=== PATIENT | female | born 1945 | race Caucasian/White ===

== ENCOUNTER → 2017-02-15 | Outpatient (CLI) | payer MEDICARE, OTHER ==
--- NOTE | ~2017-02-15 | MY11 ---
[facility] A Service of [facility] RADIOLOGY TEXT RESULTS PATIENT: VALERY MORAN LOCATION: [facility] : 43 UNIT #: [id number] AGE: [address]: Isaías Gleason MD SEX: F ORDER DR: [id number] [place] [id number] [facility]. [place], [place] [address] [id number] O MR#: [id number] Acc #: [id number] NAME: VALERY MORAN : 1945 SEX: F STUDY DATE/TIME: 02/15/2017 9:32 UNIT: [facility] ROOM: STUDY DESCRIPTION: MY Mammogram Screening Dig Tulio Attending Physician: Isaías Gleason M.D. Ordering Physician: Isaías Gleason M.D. Primary Care Physician: Isaías Gleason M.D. MEDICAL IMAGING REPORT This report is preliminary unless electronic signature is present EXAM Bilateral digital screening mammogram with CAD 02/15/2017 INDICATION 72-year-old female for routine screening. No reported problems. No personal history of breast cancer. Family history positive in a cousin. History of breast implant placement years ago and cyst removal years ago. Silicone implants. TECHNIQUE CC, MLO, and implant displaced views of the breasts were obtained and reviewed with an FDA-approved CAD device. COMPARISON We have no comparison studies. This will serve as her new baseline. FINDINGS There are bilateral retroglandular silicone implants present. They appear symmetric and intact. There is no dominant suspicious nodule or mass in either breast. No suspicious cluster of microcalcifications. On the CC view of the right breast there is a 7 mm nodular density laterally and posteriorly probably representing a tiny cyst or intramammary node. Suggest further evaluation with a spot compression view and a true lateral view. If this cannot be confirmed as benign mammographically, then targeted ultrasound may be necessary for further assessment. IMPRESSION 1. 7 mm nodular asymmetry in the posterolateral right breast. Additional views potentially and potentially a breast ultrasound recommended for further assessment. [facility] A Service of [facility] & [facility] RADIOLOGY TEXT RESULTS PATIENT: VALERY MORAN LOCATION: [facility] : 43 UNIT #: [id number] AGE: [address]: Isaías Gleason MD SEX: F ORDER DR: Patient's over the age of 40 are entered into a reminder system with target due date for the next mammogram. BIRADS: 0 Incomplete; Need additional imaging evaluation and/or prior mammograms for comparison. Dictated by... John Paul Keller M.D. THIS IS AN ELECTRONICALLY VERIFIED REPORT John Paul Keller M.D. at 02/15/2017 4:59 PM Carissa TD: 02/15/2017 11:35 JOB #: [id number] MEDICAL IMAGING REPORT Page 1 of 1 COPY
--- NOTE | ~2017-02-15 | BD1 ---
[facility] A Service of [facility] & [facility] RADIOLOGY TEXT RESULTS PATIENT: VALERY MORAN LOCATION: [facility] : 41 UNIT #: [id number] AGE: [address]: Isaías Gleason MD SEX: F ORDER DR: [id number] [facility] [address] [facility]. [place], [place] [address] [id number] O MR#: [id number] Acc #: [id number] NAME: VALERY MORAN : 1945 SEX: F STUDY DATE/TIME: 02/15/2017 9:56 UNIT: [facility] ROOM: STUDY DESCRIPTION: BD Dexa Bone Dens 1+ Site Attending Physician: Isaías Gleason M.D. Ordering Physician: Isaías Gleason M.D. Primary Care Physician: Isaías Gleason M.D. MEDICAL IMAGING REPORT This report is preliminary unless electronic signature is present EXAM Bone density spine hip, 02/15/2017 HISTORY Postmenopausal. Nonsmoker. FINDINGS Bone density scanning performed upper 4 lumbar vertebral segments and proximal left femur in this 72-year-old, 150-pound female. No comparison. Bone mineral density upper 4 lumbar vertebral segments is 0.954 g/cm2 for T-score 0.8 standard deviations below mean for reference population normal young individuals and Z-score 1.5 standard deviations above the mean for age-match population. PROXIMAL LEFT FEMUR: Total bone mineral density 0.828 g/cm2 for T-score 0.9 standard deviations below mean for reference population normal young individuals and Z-score 0.8 standard deviations above the mean for age-match population. In the left femoral neck specifically, the bone mineral density is 0.687 g/cm2 for T-score 1.5 standard deviations below mean for reference population normal young individuals and Z-score 0.6 standard deviations above the mean for age-match population. IMPRESSION 1. Osteopenia in the left femoral neck. Patient felt to be at increased risk for fracture. Treatment options may be considered. Continued surveillance is recommended. Dictated by... Ruy Gonzalez M.D. STS. [facility] A Service of [facility] & [facility] RADIOLOGY TEXT RESULTS PATIENT: VALERY MORAN LOCATION: [facility] #: [id number] : 41 UNIT #: [id number] AGE: [address]: Isaías Gleason MD SEX: F ORDER DR: THIS IS AN ELECTRONICALLY VERIFIED REPORT Ruy Gonzalez M.D. at 02/16/2017 9:16 AM Meghna TD: 02/15/2017 20:02 JOB #: [id number] MEDICAL IMAGING REPORT Page 1 of 1 COPY
== END | disposition home or self-care (01) ==
LOC: CWCC 09:19
DX: Z12.31 Encounter for screening mammogram for malignant neoplasm of breast (principal); Z80.3 Family history of malignant neoplasm of breast; Z78.0 Asymptomatic menopausal state; Z98.82 Breast implant status; N63 Unspecified lump in breast; M85.88 Other specified disorders of bone density and structure, other site
CPT/HCPCS: 77080; G0202

== ENCOUNTER → 2017-02-23 | Outpatient (CLI) | payer MEDICARE, OTHER ==
--- NOTE | ~2017-02-23 | MY8 ---
[facility] A Service of [facility] & [facility] RADIOLOGY TEXT RESULTS PATIENT: VALERY MORAN LOCATION: [facility] : 43 UNIT #: [id number] AGE: [address]: Isaías Gleason MD SEX: F ORDER DR: [id number] [facility] [address] [facility]. [place], [place] [address] [id number] O MR#: [id number] Acc #: [id number] NAME: VALERY MORAN : 1945 SEX: F STUDY DATE/TIME: 02/23/2017 14:35 UNIT: [facility] ROOM: STUDY DESCRIPTION: MY Mammogram Dx Dig Rt Attending Physician: Isaías Gleason M.D. Referring Physician: Isaías Gleason M.D. Ordering Physician: Isaías Gleason M.D. Primary Care Physician: Isaías Gleason M.D. MEDICAL IMAGING REPORT This report is preliminary unless electronic signature is present EXAM Diagnostic right mammogram 02/23 INDICATION Nodular asymmetry seen on screening exam in the lateral right breast. Patient is no current complaints. TECHNIQUE/COMPARISON Spot compression right CC and exaggerated CC views were obtained in addition to an implant displaced true lateral view. Comparison made with 02/15/2017. Study was reviewed with an FDA-approved CAD device. FINDINGS In the extreme far lateral right breast, there are at least 2 nodules seen mammographically. 1 of them measures about 8 mm in size and the other measures about 7 mm. These are presumably lymph nodes based on the mammographic appearance. Ultrasound was subsequently performed today. Ultrasound demonstrates multiple benign-appearing lymph nodes at the 9-10 o'clock position of the deep right breast about 9 cm from the nipple. One of the larger measures up to 13 mm in greatest dimension. All of these have a thin benign appearing cortex. Findings were discussed with the patient at the time of her examination today. IMPRESSION Benign mammogram and targeted right ultrasound. Nodules are compatible with benign lymph nodes. Patient should continue with routine yearly mammographic screening. Patient's over the age of 40 are entered into a reminder system with target due date for the next mammogram. [facility] A Service of [facility] RADIOLOGY TEXT RESULTS PATIENT: VALERY MORAN [id number] 43 UNIT #: [id number] AGE: [address]: Isaías Gleason MD SEX: F ORDER DR: A result letter will be sent to the patient. BIRADS: 2 Benign findings. Dictated by... Triston Madera Jr., M.D. THIS IS AN ELECTRONICALLY VERIFIED REPORT Triston Madera Jr., M.D. at 02/23/2017 5:13 PM RLK/beata TD: 02/23/2017 16:52 JOB #: [id number] MEDICAL IMAGING REPORT Page 1 of 1 COPY
--- NOTE | ~2017-02-23 | US24 ---
[facility] A Service of [facility] & [facility] RADIOLOGY TEXT RESULTS PATIENT: VALERY MORAN LOCATION: [facility] : 43 UNIT #: [id number] AGE: [address]: Isaías Gleason MD SEX: F ORDER DR: [id number] [facility] [address] [facility] [place], [place] [address] [id number] O MR#: [id number] Acc #: [id number] NAME: VALERY MORAN : 1945 SEX: F STUDY DATE/TIME: 02/23/2017 15:01 UNIT: [facility] ROOM: STUDY DESCRIPTION: US Breast Unilateral Attending Physician: Isaías Gleason M.D. Referring Physician: Isaías Gleason M.D. Ordering Physician: Isaías Gleason M.D. Primary Care Physician: Isaías Gleason M.D. MEDICAL IMAGING REPORT This report is preliminary unless electronic signature is present EXAM Right breast ultrasound, 02/23/2017. INDICATIONS Abnormal mammogram showing nodules in the deep right lateral breast. FINDINGS For a full report, please see mammogram report dated 02/23/2017. BIRADS: 2 Benign finding. Dictated by... Triston Madera Jr., M.D. THIS IS AN ELECTRONICALLY VERIFIED REPORT Triston Madera Jr., M.D. at 02/23/2017 5:13 PM ALFONSO/mike TD: 02/23/2017 16:53 JOB #: [id number] MEDICAL IMAGING REPORT Page 1 of 1 COPY
== END | disposition home or self-care (01) ==
LOC: CMAM 14:25
DX: R92.8 Other abnormal and inconclusive findings on diagnostic imaging of breast (principal); N63 Unspecified lump in breast
CPT/HCPCS: 76641; G0206